=== PATIENT | male | born 1970 | race Caucasian/White ===

== ENCOUNTER 2019-09-27 16:24 | Emergency (ER) | payer MEDICARE, SELFPAY ==
--- NOTE | 2019-09-27 16:25 | ED_ITS ---
Entered by Shara Adrian, acting as scribe for Susu Loaiza MD HPI - Neuro Symptoms/Deficit General: Chief Complaint: Neuro Symptoms/Deficit Stated Complaint: Stroke Time Seen by Provider: 09/27/19 16:25 Source: patient and EMS Mode of arrival: EMS Limitations: physical limitation History of Present Illness: HPI Narrative: 49 yo male presents to ED with n euro symptoms. The patient's last known normal was at 1230, when he went to bed. He woke at 1540 with his current symptoms. The patient states he has had a loss of vision over last several weeks. Today the patient presents with numbness and immobility down his L side. The patient is unable to hold up his L arm and L leg. Onset (ago): hour(s) (1) Time: 16:30 Last Observed Normal: 12:30 Timing confirmed by: other (EMS) Location: left arm and left leg Severity: severe Quality: weak Relieving factors: none Exacerbating factors: none Context: sudden onset Associated symptoms: Reports no associated symptoms; Deny chest pain, headache(s), nausea or vomiting Treatments Prior to Arrival: Aspirin Review of Systems Const: Denies: fever or chills Eyes: Reports: change in vision ENMT: Denies: throat pain or mouth pain Card: Denies: chest pain Resp: Denies: shortness of breath GI: Denies: abdominal pain, nausea, vomiting or diarrhea Musc: Denies: back pain or joint pain Skin/Breast: Denies: rash Neuro: Reports: numbness in extremities, weakness in extremities, changes in sensation and difficulty walking; Denies: headache or behavioral changes Psych: Denies: depression Endo: Denies: excessive urination Moody/Lymph: Denies: easy bruising All/Imm: Denies: hives PFSH ED PFSH: Statuses (acute, chronic, etc) shown below reflect problem list status as previously entered and may not be historically accurate Social History Smoking and tobacco status: former smoker NIH stroke score NIHSS: Level Of Consciousness - 1a: 0 Level Of Consciousness Questions - 1b: Both Correct Level Of Consciousness Commands - 1c: Both Correct Best Gaze - 2: Partial Gaze Palsy Visual Kaba - 3: Partial Hemianopia Facial Palsy - 4: Partial Paralysis Motor Arm Right - 5: No Drift Motor Arm Left - 5: No Effort Against [place] Motor Leg Right - 6: No Drift Motor Leg Left - 6: No Effort Against [place] Limb Ataxia - 7: Absent Sensory - 8: Mild To Moderate Loss Best Language - 9: No Aphasia Dysarthia - 10: Normal Physical Exam Const: COMMON NORMALS: no apparent distress and healthy appearing OTHER: obese HENMT: COMMON NORMALS: normocephalic and external nose normal HEAD & SCALP: normocephalic NOSE: external nose normal and no nasal discharge (nasal dischage) Eye: COMMON NORMALS: PERRL PUPIL: Yes PERRL Neck/C-Spine: COMMON NORMALS: full ROM and no lymphadenopathy Chest: COMMONS NORMALS: inspection of chest normal Resp: COMMON NORMALS: normal respiratory effort and clear to auscultation bilaterally AUSCULTATION: clear to auscultation bilaterally Cardio: COMMON NORMALS: regular rate and regular rhythm RATE: regular rate RHYTHM: regular rhythm GI: COMMON NORMALS: soft to palpation PALPATION: Yes soft Extremity: COMMON NORMALS: normal to inspection, full ROM and normal capillary refill Neuro: OTHER: Patient has left-sided neglect no vision to left peripheral vision. Patient is unable to move his left side and has left-sided facial droop. Psych: COMMON NORMALS: mental status grossly normal and cooperative Skin: COMMON NORMALS: no rashes or lesions noted GENERAL SKIN EXAM: no rashes or lesions noted Course Reevaluation(s): Reevaluation #1: Patient here has a NIH of 13. CT scan shows nothing acute. Patient is not hypoglycemic. I had full discussion with patient and family going over risk and benefits of TPA. Patient has no contraindications. I spoke to neurologist on phone who recommended TPA as well. We do not have time for a phone consult to the video as last known normal was 1230. Patient's initial blood pressure here was high for the threshold but after 20 of labetalol patient's blood pressure is 171/96. Patient is cleared for TPA administration and will get a CTA likely consult [facility] in [place] for likely transfer. Time: 16:52 Vital Signs: Vital signs: Vital Signs Temperature 97.9 F 09/27/19 16:26 Pulse Rate 78 09/27/19 17:29 Respiratory Rate 22 H 09/27/19 17:29 Blood Pressure 177/97 09/27/19 17:29 Pulse Oximetry 97 09/27/19 17:29 MDM - Neuro Symptoms/Deficit MDM Narrative: Medical decision making narrative: Patient presents here with a likely CVA. Patient given TPA here and I spoke to neurologist at [facility] who wanted patient transferred there emergently for CTA and possible embolectomy. Patient has been stable while here. Lab Data: Labs: Lab Results 09/27/19 09/27/19 09/27/19 Range/Units 16:15 16:15 16:15 WBC 4.8 (4.0-10.0) 10^3/ uL RBC 4.83 (4.1-5.3) 10^6/u L Hgb 14.0 (11.7-16.6) g/dL Hct 38.1 L (42.0-52.0) % MCV 78.9 L (80-94) fL MCH 29.0 (28.0-34.0) pg MCHC 36.7 H (30.0-36.0) g/dL RDW 13.1 (12.1-15.1) % Plt Count 230 (130-400) 10^3/c mm MPV 9.8 (7.4-10.4) fL Neut % (Auto) 59.7 % Lymph % (Auto) 26.9 % [place] % (Auto) 9.7 % Eos % (Auto) 2.9 % Baso % (Auto) 0.4 % Neut # (Auto) 2.9 (1.8-7.7) 10^3/u L Lymph # (Auto) 1.3 (0.8-4.8) 10^3/u L [place] # (Auto) 0.5 (0.2-0.9) 10^3/u L Eos # (Auto) 0.1 (0.0-0.8) 10^3/u L Baso # (Auto) 0.0 (0.0-0.1) 10^3/u L Nucleated RBC % (a uto) 0 % Nucleated RBCs # 0.0 /100WBC PT 12.90 (10.5-13.3) SECO NDS INR 0.95 (0.8-1.2) APTT 23.9 (23.9-36.7) SECO NDS Sodium 130 L (136-145) mmol/L Potassium 4.0 (3.5-5.1) mmol/L Chloride 88 L (98-107) mmol/L Carbon Dioxide 24 (22-29) mmol/L Anion Gap 22.0 H (5-19) BUN 36 H (6-20) mg/dL Creatinine 2.0 H (0.7-1.2) mg/dL GFR Calculation 35.5 L (90-130) mL/min Glucose 530 H* (74-109) mg/dL Calcium 10.2 (8.5-10.5) mg/dL Total Bilirubin 0.5 (0.15-1.2) mg/dL AST 11 (0-40) U/L ALT 22 (0-41) U/L Alkaline Phosphata se 88 (40-130) IU/L Total Protein 7.7 (6.6-8.7) g/dL Albumin 4.4 (3.5-5.2) g/dL Globulin 3.3 (1.3-4.6) g/dL Imaging Data^: CT Head: Radiologist's impression: Patient: Maikol Rosa Unit #: [id number] : 1970 Age/Sex: 49 / M ADM Date: 09/27/19 Loc: ER Room/Bed: Attending Dr: Ordering Provider/Ordering MD: Susu Loaiza MD Date of Service: 09/27/19 Procedure(s): CT head con* [id number] Accession Number(s): [id number] Report Number: [id number] PROCEDURE INFORMATION: Exam: CT Head Without Contrast Exam date and time: 09/27/2019 4:26 PM Age: 49 years old Clinical indication: Weakness, extremity; Left; Additional info: Symptoms of acute stroke TECHNIQUE: Imaging protocol: Computed tomography of the head without contrast. Total DLP: 899.96 mGy-cm Radiation optimization: All CT scans at this facility use at least one of these dose optimization techniques: automated exposure control; mA and/or kV adjustment per patient size (includes targeted exams where dose is matched to clinical indication); or iterative reconstruction. Other technique: STROKE PROTOCOL was implemented. COMPARISON: CT head wo con* [id number] 01/11/2016 8:55 PM FINDINGS: Brain: There is mild diffuse volume loss and increased periventricular low-density compatible with progressive small-vessel disease changes as compared to the old exam. Old lacunar infarcts right basal ganglia are noted. There is some mild enlargement/asymmetry of the posterior horn left lateral ventricle compared to the old exam with adjacent probable old deep white matter infarct and volume loss. No acute hemorrhage or extra-axial fluid collection. No acute edema or mass effect. 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 Ventricles: The ventricular size is appropriate. Bones/joints: Unremarkable. No acute fracture. Sinuses: Mild mucosal thickening is noted in the sinuses. Mastoid air cells: Visualized mastoid air cells are well aerated. Soft tissues: Unremarkable. CT/CT head wo con* [id number] IMPRESSION: No acute abnormality. Progressive volume loss and periventricular small vessel disease is noted compared to the prior exam. Unchanged lipoma as above. Critical Care Time Critical Care Time: Critical Care Time: Yes Total Critical Care Time: 35 Attestation: Critical care time was performed separate from procedures. Manage patient's cardiac output along with hypertension. Patient had an acute stroke and was given TPA. I consulted neurology at [facility] with this [facility]. Patient was started on Cardene drip along with given labetalol for blood pressure control for TPA. Patient required 35 minutes of my time with critical care thinking. Discharge Plan Discharge Patient Disposition: Transfer to ED Clinical Impression: Cerebrovascular accident Qualifiers: CVA mechanism: other Qualified Code(s): I63.89 - Other cerebral infarction Condition: Stable Prescriptions: No Action atorvastatin 80 mg Tablet 80 mg PO DAILY RF: 0 clonidine HCl 0.1 mg Tablet 0.1 mg PO DAILY PRN (Reason: Blood Pressure) RF: 0 lisinopril-hydrochlorothiazide 20-12.5 mg Tablet 2 tab PO DAILY RF: 0 glipizide 10 mg Tablet Extended Release 24hr 10 mg PO DAILY RF: 0 Plavix 75 mg Tablet 75 mg PO DAILY RF: 0 amlodipine 5 mg Tablet 5 mg PO DAILY RF: 0 levothyroxine 75 mcg Tablet 75 mcg PO DAILY RF: 0 Nitrostat 0.4 mg Tablet, Sublingual 0.4 mg SUBLINGUAL Q5M PRN (Reason: Chest Pain) RF: 0 aspirin 81 mg Tablet,Chewable 81 mg PO DAILY RF: 0 metoprolol tartrate 25 mg Tablet 25 mg PO BID RF: 0 Referrals: Rufino Orellana MD [Family Provider] - Steve Gonzalez MD [Primary Care Provider] - Interventions: ED Discharge Assessment Last Done: 09/27/19 17:29 Coding Level of Care Code ED Bonus Clerk for Chg Fwd The documentation recorded by the Nguyễn silver Valerie R, accurately reflects the service I personally performed and the decisions made by me, Susu Loaiza MD Sep 27, 2019 16:24
[2019-09-27 16:26] VITALS: BP 191/118; PULSE 75; RESP 16; TEMP 36.6; O2SAT 97; BMI 53.8
[2019-09-27] MEDS: labetalol 5 mg/mL SDV 20mL 20 MG IVP (16:48)
[2019-09-27 16:49] LABS: Basophils % 0.4 %; Eosinophils # 0.1 10^3/uL (0.0-0.8); Eosinophils % 2.9 %; Hematocrit 38.1 % (42.0-52.0); Lymphocytes # 1.3 10^3/uL (0.8-4.8); Lymphocytes % 26.9 %; Mean Corpuscular HGB Conc 36.7 g/dL (30.0-36.0); Mean Corpuscular Volume 78.9 fL (80-94); Mean Platelet Volume 9.8 fL (7.4-10.4); Monocytes # 0.5 10^3/uL (0.2-0.9); Monocytes % 9.7 %; Neutrophils # 2.9 10^3/uL (1.8-7.7); Neutrophils % 59.7 %; Nucleated Red Blood Cells % 0 %; Platelet Count 230 10^3/cmm (130-400); Red Blood Count 4.83 10^6/uL (4.1-5.3); Red Cell Distribution Width 13.1 % (12.1-15.1); White Blood Count 4.8 10^3/uL (4.0-10.0)
--- NOTE | 2019-09-27 16:50 | PC.NURSE ---
finger stick 470
[2019-09-27 16:52] VITALS: BP 175/96; PULSE 69; RESP 19; O2SAT 98
[2019-09-27 17:03] LABS: Alanine Aminotransferase 22 U/L (0-41); Albumin Level 4.4 g/dL (3.5-5.2); Alkaline Phosphatase 88 IU/L (40-130); Aspartate Amino Transferase 11 U/L (0-40); Blood Urea Nitrogen 36 mg/dL (6-20); Calcium 10.2 mg/dL (8.5-10.5); Carbon Dioxide 24 mmol/L (22-29); Chloride 88 mmol/L (98-107); Globulin 3.3 g/dL (1.3-4.6); Glomerular Filtration Rate 35.5 mL/min (90-130); Sodium 130 mmol/L (136-145); Total Bilirubin 0.5 mg/dL (0.15-1.2); Total Protein 7.7 g/dL (6.6-8.7)
[2019-09-27 17:05] VITALS: BP 180/96; PULSE 77; RESP 14; O2SAT 96
[2019-09-27 17:11] LABS: INR 0.95 (0.8-1.2)
[2019-09-27 17:12] LABS: Partial Thromboplastin Time 23.9 SECONDS (23.9-36.7)
[2019-09-27 17:18] LABS: Glucose 530 mg/dL (74-109)
[2019-09-27 17:29] VITALS: BP 177/97; PULSE 78; RESP 22; O2SAT 97
[2019-09-27] MEDS: nicardipine 20 MG/200 ML PREMIX 50 MG IV (17:30)
[2019-09-27 17:57] LABS: Add Urine Microscopic? YES; Bilirubin Urine Neg (NEGATIVE); Blood Urine Neg (Negative); Glucose Urine UA 4+ (Normal); Ketones Urine Negative (Negative); Leukocyte Esterase Urine Negative (Negative); Nitrate Urine Negative (Negative); Protein Urine 3+ (Negative); Specific Gravity, Urine 1.005 (1.005-1.030); Urine Appearance Clear (CLEAR); Urine Color Straw (Yellow); Urobilinogen Urine Norm (Negative); pH Urine 7 (5-7)
[2019-09-27 18:00] LABS: Add Urine Culture? No; Bacteria Urine TRACE; RBC Urine 0-4 /hpf (0-2); Squamous Epithelial Cell Urine 0-4 (0-5); WBC Urine 0-4 /hpf (0-5)
[2019-09-27 18:11] LABS: Amphetamines Screen Urine Negative (Negative); Barbiturates Screen Urine Negative (Negative)
--- NOTE | 2019-09-27 18:24 | ED_ITS ---
Entered by Shara Adrian, acting as scribe for Susu Loaiza MD Sep 27, 2019 16:24 HPI - Neuro Symptoms/Deficit General: Chief Complaint: Neuro Symptoms/Deficit Stated Complaint: Stroke Time Seen by Provider: 09/27/19 16:25 Source: patient and EMS Mode of arrival: EMS Limitations: physical limitation History of Present Illness: Location: left arm and left leg Severity: severe Quality: weak Relieving factors: none Exacerbating factors: none Treatments Prior to Arrival: Aspirin PFS ED PFSH: Statuses (acute, chronic, etc) shown below reflect problem list status as previously entered and may not be historically accurate Social History Smoking and tobacco status: former smoker Course Vital Signs: Vital signs: Vital Signs Temperature 97.9 F 09/27/19 16:26 Pulse Rate 78 09/27/19 17:29 Respiratory Rate 22 H 09/27/19 17:29 Blood Pressure 177/97 09/27/19 17:29 Pulse Oximetry 97 09/27/19 17:29 MDM - Neuro Symptoms/Deficit Lab Data: Labs: Lab Results 09/27/19 09/27/19 09/27/19 Range/Units 16:15 16:15 16:15 WBC 4.8 (4.0-10.0) 10^3/ uL RBC 4.83 (4.1-5.3) 10^6/u L Hgb 14.0 (11.7-16.6) g/dL Hct 38.1 L (42.0-52.0) % MCV 78.9 L (80-94) fL MCH 29.0 (28.0-34.0) pg MCHC 36.7 H (30.0-36.0) g/dL RDW 13.1 (12.1-15.1) % Plt Count 230 (130-400) 10^3/c mm MPV 9.8 (7.4-10.4) fL Neut % (Auto) 59.7 % Lymph % (Auto) 26.9 % [place] % (Auto) 9.7 % Eos % (Auto) 2.9 % Baso % (Auto) 0.4 % Neut # (Auto) 2.9 (1.8-7.7) 10^3/u L Lymph # (Auto) 1.3 (0.8-4.8) 10^3/u L [place] # (Auto) 0.5 (0.2-0.9) 10^3/u L Eos # (Auto) 0.1 (0.0-0.8) 10^3/u L Baso # (Auto) 0.0 (0.0-0.1) 10^3/u L Nucleated RBC % (a uto) 0 % Nucleated RBCs # 0.0 /100WBC PT 12.90 (10.5-13.3) SECO NDS INR 0.95 (0.8-1.2) APTT 23.9 (23.9-36.7) SECO NDS Sodium 130 L (136-145) mmol/L Potassium 4.0 (3.5-5.1) mmol/L Chloride 88 L (98-107) mmol/L Carbon Dioxide 24 (22-29) mmol/L Anion Gap 22.0 H (5-19) BUN 36 H (6-20) mg/dL Creatinine 2.0 H (0.7-1.2) mg/dL GFR Calculation 35.5 L (90-130) mL/min Glucose 530 H* (74-109) mg/dL Calcium 10.2 (8.5-10.5) mg/dL Total Bilirubin 0.5 (0.15-1.2) mg/dL AST 11 (0-40) U/L ALT 22 (0-41) U/L Alkaline Phosphata se 88 (40-130) IU/L Total Protein 7.7 (6.6-8.7) g/dL Albumin 4.4 (3.5-5.2) g/dL Globulin 3.3 (1.3-4.6) g/dL Urine Color (Yellow) Urine Appearance (CLEAR) Urine pH (5-7) Ur Specific Gravit y (1.005-1.030) Urine Protein (Negative) Urine Glucose (UA) (Normal) Urine Ketones (Negative) Urine Occult Blood (Negative) Urine Nitrate (Negative) Urine Bilirubin (NEGATIVE) Urine Urobilinogen (Negative) mg/dL Ur Leukocyte [place] ase (Negative) Urine RBC (0-2) /hpf Urine WBC (0-5) /hpf Ur Squamous Epith Cells (0-5) Urine Bacteria (NONE) Ur Barbiturates Sc reen (Negative) ng/mL Ur Amphetamines Sc reen (Negative) ng/mL 09/27/19 09/27/19 Range/Units 17:18 17:18 WBC (4.0-10.0) 10^3/ uL RBC (4.1-5.3) 10^6/u L Hgb (11.7-16.6) g/dL Hct (42.0-52.0) % MCV (80-94) fL MCH (28.0-34.0) pg MCHC (30.0-36.0) g/dL RDW (12.1-15.1) % Plt Count (130-400) 10^3/c mm MPV (7.4-10.4) fL Neut % (Auto) % Lymph % (Auto) % [place] % (Auto) % Eos % (Auto) % Baso % (Auto) % Neut # (Auto) (1.8-7.7) 10^3/u L Lymph # (Auto) (0.8-4.8) 10^3/u L [place] # (Auto) (0.2-0.9) 10^3/u L Eos # (Auto) (0.0-0.8) 10^3/u L Baso # (Auto) (0.0-0.1) 10^3/u L Nucleated RBC % (a uto) % Nucleated RBCs # /100WBC PT (10.5-13.3) SECO NDS INR (0.8-1.2) APTT (23.9-36.7) SECO NDS Sodium (136-145) mmol/L Potassium (3.5-5.1) mmol/L Chloride (98-107) mmol/L Carbon Dioxide (22-29) mmol/L Anion Gap (5-19) BUN (6-20) mg/dL Creatinine (0.7-1.2) mg/dL GFR Calculation (90-130) mL/min Glucose (74-109) mg/dL Calcium (8.5-10.5) mg/dL Total Bilirubin (0.15-1.2) mg/dL AST (0-40) U/L ALT (0-41) U/L Alkaline Phosphata se (40-130) IU/L Total Protein (6.6-8.7) g/dL Albumin (3.5-5.2) g/dL Globulin (1.3-4.6) g/dL Urine Color Straw (Yellow) Urine Appearance Clear (CLEAR) Urine pH 7 (5-7) Ur Specific Gravit y 1.005 (1.005-1.030) Urine Protein 3+ H (Negative) Urine Glucose (UA) 4+ H (Normal) Urine Ketones Negative (Negative) Urine Occult Blood Neg (Negative) Urine Nitrate Negative (Negative) Urine Bilirubin Neg (NEGATIVE) Urine Urobilinogen Norm (Negative) mg/dL Ur Leukocyte [place] ase Negative (Negative) Urine RBC 0-4 H (0-2) /hpf Urine WBC 0-4 H (0-5) /hpf Ur Squamous Epith Cells 0-4 H (0-5) Urine Bacteria Trace (NONE) Ur Barbiturates Sc reen Negative (Negative) ng/mL Ur Amphetamines Sc reen Negative (Negative) ng/mL Imaging Data^: CT Head: Radiologist's impression: [place] [address] CT Scan Report Signed Patient: Maikol Rosa Unit #: [id number] : 1970 Age/Sex: 49 / M ADM Date: 09/27/19 Loc: ER Room/Bed: Attending Dr: Ordering Provider/Ordering MD: Susu Loaiza MD Date of Service: 09/27/19 Procedure(s): CT head wo con* [id number] Accession Number(s): [id number] Report Number: [id number] PROCEDURE INFORMATION: Exam: CT Head Without Contrast Exam date and time: 09/27/2019 4:26 PM Age: 49 years old Clinical indication: Weakness, extremity; Left; Additional info: Symptoms of acute stroke TECHNIQUE: Imaging protocol: Computed tomography of the head without contrast. Total DLP: 899.96 mGy-cm Radiation optimization: All CT scans at this facility use at least one of these dose optimization techniques: automated exposure control; mA and/or kV adjustment per patient size (includes targeted exams where dose is matched to clinical indication); or iterative reconstruction. Other technique: STROKE PROTOCOL was implemented. COMPARISON: CT head wo con* [id number] 01/11/2016 8:55 PM FINDINGS: Brain: There is mild diffuse volume loss and increased periventricular low-density compatible with progressive small-vessel disease changes as compared to the old exam. Old lacunar infarcts right basal ganglia are noted. There is some mild enlargement/asymmetry of the posterior horn left lateral ventricle compared to the old exam with adjacent probable old deep white matter infarct and volume loss. No acute hemorrhage or extra-axial fluid collection. No acute edema or mass effect. 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 Ventricles: The ventricular size is appropriate. Bones/joints: Unremarkable. No acute fracture. Sinuses: Mild mucosal thickening is noted in the sinuses. Mastoid air cells: Visualized mastoid air cells are well aerated. Soft tissues: Unremarkable. CT/CT head wo con* [id number] IMPRESSION: No acute abnormality. Progressive volume loss and periventricular small vessel disease is noted compared to the prior exam. Unchanged lipoma as above. ASSESSMENT: ASPECTS ([place] Stroke Program Early CT Score) is 10. Radiation Dose CTDIVOL = (mGy): DLP = 899.96 (mGy-cm) Dictated By: Malika Estevez Signed By: Malika Estevez Signed Date/Time: 09/27/19 1644 DD/ Discharge Plan Discharge Patient Disposition: Transfer to ED Clinical Impression: Cerebrovascular accident Qualifiers: CVA mechanism: other Qualified Code(s): I63.89 - Other cerebral infarction Condition: Stable Prescriptions: No Action atorvastatin 80 mg Tablet 80 mg PO DAILY RF: 0 clonidine HCl 0.1 mg Tablet 0.1 mg PO DAILY PRN (Reason: Blood Pressure) RF: 0 lisinopril-hydrochlorothiazide 20-12.5 mg Tablet 2 tab PO DAILY RF: 0 glipizide 10 mg Tablet Extended Release 24hr 10 mg PO DAILY RF: 0 Plavix 75 mg Tablet 75 mg PO DAILY RF: 0 amlodipine 5 mg Tablet 5 mg PO DAILY RF: 0 levothyroxine 75 mcg Tablet 75 mcg PO DAILY RF: 0 Nitrostat 0.4 mg Tablet, Sublingual 0.4 mg SUBLINGUAL Q5M PRN (Reason: Chest Pain) RF: 0 aspirin 81 mg Tablet,Chewable 81 mg PO DAILY RF: 0 metoprolol tartrate 25 mg Tablet 25 mg PO BID RF: 0 Referrals: Rufino Orellana MD [Family Provider] - Steve Gonzalez MD [Primary Care Provider] - Interventions: ED Discharge Assessment Last Done: 09/27/19 17:29 Discharge Date/Time: 09/27/19 17:30 Coding Level of Care Code ED Component Inspector for Khushbu Munoz
[2019-09-27 19:02] LABS: Benzodiazepines Screen Urine Negative (Negative); Cocaine Screen Urine Negative (Negative); Opiate Screen Urine Negative (Negative); PCP Screen Urine Negative (Negative); THC Screen Urine Negative (Negative)
[2019-09-28 07:05] LABS: Glucose Point of Care 476 mg/dL (70-110)
== END 2019-09-27 17:30 ==
PROVIDERS: Emergency Provider Emergency Medicine; Family Provider Family Medicine; PCP Family Medicine
DX: I63.9 Cerebral infarction, unspecified (principal); Z79.82 Long term (current) use of aspirin; Z79.02 Long term (current) use of antithrombotics/antiplatelets; Z79.84 Long term (current) use of oral hypoglycemic drugs; Z87.891 Personal history of nicotine dependence
CPT/HCPCS: 36416; 70450; 80053; 80307; 81001; 82962; 85025; 85610; 85730; 96365; 96374; 99283; J2997; J3490

== ENCOUNTER 2019-12-24 10:59 | Outpatient (REF) | payer MEDICARE, SELFPAY ==
[2019-12-24 11:08] LABS: Basophils % 0.5 %; Eosinophils # 0.4 10^3/uL (0.0-0.8); Eosinophils % 5.6 %; Hematocrit 36.2 % (42.0-52.0); Hemoglobin 12.7 g/dL (11.7-16.6); Lymphocytes # 1.4 10^3/uL (0.8-4.8); Lymphocytes % 21.4 %; Mean Corpuscular HGB Conc 35.1 g/dL (30.0-36.0); Mean Corpuscular Hemoglobin 28.9 pg (28.0-34.0); Mean Corpuscular Volume 82.5 fL (80-94); Mean Platelet Volume 9.7 fL (7.4-10.4); Monocytes # 0.5 10^3/uL (0.2-0.9); Neutrophils # 4.1 10^3/uL (1.8-7.7); Nucleated Red Blood Cells % 0 %; Platelet Count 261 10^3/cmm (130-400); Red Blood Count 4.39 10^6/uL (4.1-5.3); Red Cell Distribution Width 13.8 % (12.1-15.1); White Blood Count 6.4 10^3/uL (4.0-10.0)
[2019-12-24 11:29] LABS: Alanine Aminotransferase 15 U/L (0-41); Albumin Level 4.3 g/dL (3.5-5.2); Alkaline Phosphatase 91 IU/L (40-130); Anion Gap 15.6 (5-19); Aspartate Amino Transferase 11 U/L (0-40); Blood Urea Nitrogen 22 mg/dL (6-20); Calcium 9.6 mg/dL (8.5-10.5); Carbon Dioxide 27 mmol/L (22-29); Chloride 95 mmol/L (98-107); Chol HDL Ratio 2.87 mg/dL (1.0-5.00); Cholesterol 89 mg/dL (0-200); Globulin 2.9 g/dL (1.3-4.6); Glomerular Filtration Rate 53.6 mL/min (90-130); Glucose 179 mg/dL (65-115); HDL Cholesterol 31 mg/dL (60-100); LDL Cholesterol Calculated 39 mg/dL (50-129); LDL HDL Ratio 1.26 RATIO (0.00-3.22); Osmolality Calculated 279 mOsm/kg (285-295); Potassium 3.6 mmol/L (3.5-5.1); Sodium 134 mmol/L (136-145); Thyroid Stimulating Hormone 4.23 uIU/mL (0.27-4.20); Total Bilirubin 0.6 mg/dL (0.15-1.2); Total Protein 7.2 g/dL (6.6-8.7); Triglycerides 97 mg/dL (0-150)
[2019-12-24 11:40] LABS: Alcohol Level < 10 mg/dL (0-10)
== END 2019-12-24 11:00 | disposition home or self-care (01) ==
LOC: LAB 10:59
PROVIDERS: Family Provider Family Medicine; PCP Family Medicine; Visit Provider Family Medicine
DX: I63.9 Cerebral infarction, unspecified (principal); E11.9 Type 2 diabetes mellitus without complications; R53.1 Weakness
CPT/HCPCS: 80053; 80061; 80307; 82044; 84443; 85025

== ENCOUNTER 2019-12-24 15:13 | Outpatient (CLI) | payer MEDICARE, SELFPAY ==
[2019-12-24 20:28] LABS: Creatinine Urine, Random 51 mg/dL (39-259)
[2019-12-24 21:16] LABS: Microalbum Creatinine Ratio Ur 863 mg/dL (0-20); Microalbumin Random Urine 44 ug/dL (0-20)
== END 2019-12-24 15:14 | disposition home or self-care (01) ==
PROVIDERS: Family Provider Family Medicine; PCP Family Medicine; Visit Provider Family Medicine
DX: I63.9 Cerebral infarction, unspecified (principal); E11.9 Type 2 diabetes mellitus without complications
CPT/HCPCS: 82044

== ENCOUNTER 2020-01-22 10:18 | Outpatient (CLI) | payer MEDICARE, SELFPAY ==
[2020-01-22 11:39] LABS: Estmated Average Glucose 186; Hemoglobin A1C 8.1 % (4.0-6.0)
== END 2020-01-22 10:19 | disposition home or self-care (01) ==
LOC: LAB 10:20
PROVIDERS: PCP Family Medicine; Visit Provider Family Medicine
DX: E11.9 Type 2 diabetes mellitus without complications (principal)
CPT/HCPCS: 83036

== ENCOUNTER 2020-10-27 10:17 | Outpatient (RCR) | payer MEDICARE, MEDICAID, SELFPAY | END 2020-11-01 23:59 | disposition home or self-care (01) | LOC: SOT 10:17 | PROVIDERS: PCP Family Medicine; Referring Provider Family Medicine; Visit Provider Family Medicine | DX: Z86.73 Personal history of transient ischemic attack (TIA), and cerebral infarction without residual deficits (principal) | CPT/HCPCS: 97167 ==

== ENCOUNTER 2020-11-16 06:00 | Outpatient (RCR) | payer MEDICARE, MEDICAID, SELFPAY | END 2020-12-02 23:59 | disposition home or self-care (01) | LOC: SPT 06:00 | PROVIDERS: PCP Family Medicine; Referring Provider Family Medicine; Visit Provider Family Medicine | DX: I69.90 Unspecified sequelae of unspecified cerebrovascular disease (principal) | CPT/HCPCS: 97110; 97116; 97161; 97530 ==

== ENCOUNTER 2020-12-03 06:00 | Outpatient (RCR) | payer MEDICARE, MEDICAID, SELFPAY | END 2021-01-01 23:59 | disposition home or self-care (01) | LOC: SPT 06:00 | PROVIDERS: PCP Family Medicine; Referring Provider Family Medicine; Visit Provider Family Medicine | DX: I69.80 Unspecified sequelae of other cerebrovascular disease (principal) | CPT/HCPCS: 97110; 97116; 97530 ==

== ENCOUNTER 2021-01-02 06:00 | Outpatient (RCR) | payer MEDICARE, MEDICAID, SELFPAY | END 2021-02-01 23:59 | disposition home or self-care (01) | LOC: SPT 06:00 | PROVIDERS: PCP Family Medicine; Referring Provider Family Medicine; Visit Provider Family Medicine | DX: I69.90 Unspecified sequelae of unspecified cerebrovascular disease (principal) | CPT/HCPCS: 97110; 97530 ==

== ENCOUNTER 2021-02-02 06:00 | Outpatient (RCR) | payer MEDICARE, MEDICAID, SELFPAY | END 2021-03-03 23:59 | disposition home or self-care (01) | LOC: SPT 06:00 | PROVIDERS: PCP Family Medicine; Referring Provider Family Medicine; Visit Provider Family Medicine | DX: I69.90 Unspecified sequelae of unspecified cerebrovascular disease (principal) | CPT/HCPCS: 97110 ==

== ENCOUNTER 2022-04-05 06:00 | Outpatient (RCR) | payer MEDICARE, MEDICAID, SELFPAY | END 2022-05-04 23:59 | disposition home or self-care (01) | LOC: SPT 06:00 | PROVIDERS: PCP Family Medicine; Referring Provider Family Medicine; Visit Provider Family Medicine | DX: R26.9 Unspecified abnormalities of gait and mobility (principal) | CPT/HCPCS: 97162 ==

== ENCOUNTER 2023-09-12 08:31 | Outpatient (CLI) | payer MEDICARE, MEDICAID, SELFPAY ==
--- NOTE | 2023-09-12 08:37 | US_ITS ---
WS: [id number] RENAL ULTRASOUND URINARY BLADDER ULTRASOUND HISTORY: ACUTE KIDNEY FAILURE COMPARISON: None available. TECHNIQUE: 2-D and color Doppler imaging of the kidney submitted. Right kidney: 12.6 cm x 5.3 cm x 5.7 cm. Normal echogenicity with no hydronephrosis or mass. Left kidney: 11.8 cm x 5.3 cm x 5.8 cm. Normal echogenicity with no hydronephrosis or mass. Aorta: Normal. Urinary Bladder: Minimally distention prior to post void. Post void residual of 91 cc3. No intraluminal bladder mass. Cholelithiasis. IMPRESSION: Normal renal ultrasound. Mild post void residual of 91 cc3.
== END 2023-09-12 08:32 | disposition home or self-care (01) ==
LOC: RAD 08:32
PROVIDERS: PCP Family Medicine; Visit Provider Family Medicine
DX: N17.9 Acute kidney failure, unspecified (principal)
CPT/HCPCS: 76770; 76857